=== PATIENT | female | born 1995 | race American Indian/Alaskan Native ===

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

== ENCOUNTER 2017-02-11 11:44 | Outpatient (CLI) | payer MEDICAID ==
[2017-02-11 12:58] VITALS: BP 122/72
== END 2017-02-11 13:34 | disposition home or self-care (01) ==
LOC: TRG 11:44
PROVIDERS: ATTEND Obstetrics & Gynecology
DX: O48.0 Post-term pregnancy (principal); Z3A.40 40 weeks gestation of pregnancy
CPT/HCPCS: 59025

== ENCOUNTER 2019-02-16 11:40 | Emergency (ER) | payer SELFPAY ==
[2019-02-16 11:54] VITALS: BP 105/71
--- NOTE | 2019-02-16 11:54 | Emergency Department Report ---
Blank Doc - Documentation Documentation: This is a 24-year-old female that presents with right eye irritation with blurry vision. Stated has some "cloudiness" to the eye. Is taking Polytrim for this with no relief. Stated is getting wore. This initial assessment/diagnostic orders/clinical plan/treatment(s) is/are subject to change based on patient's health status, clinical progression and re- assessment by fellow clinical providers in the ED. Further treatment and workup at subsequent clinical providers discretion. Patient/guardians urged not to elope from the ED as their condition may be serious if not clinically assessed and managed. Initial orders include: 1- Patient sent to [facility] for further evaluation and treatment 2- visual acuity
--- NOTE | 2019-02-16 14:09 | Emergency Department Report ---
[place] [facility] Chief Complaint: Eye Problems Stated Complaint: PINK EYE/BLURRED VISION (R) EYE Time Seen by Provider: 02/16/19 11:51 Duration: 5 Days Side: Bilateral Severity: moderate Symptoms: Yes Eye Itching, Yes Eye Redness, Yes Eye Pain, Yes Blurred Vision (right), No Mucous Drainage, No Purulent Drainage, No Preceding URI, No H/O Allergic Rhinitis, No Contact Lens Use, No Trauma, No Fever, No Headache Other History: This is a 24-year-old female presents complaining of right greater than left eye redness and irritation signs. Patient states that her and son were evaluated last week for pinkeye. Patient states that after taking antibiotics there symptoms resolve. Patient states that her symptoms started after that patient states then started taking her 's prescription eye drops no relief. ED Review of Systems ROS: Stated complaint: PINK EYE/BLURRED VISION (R) EYE Other details as noted in HPI Comment: All other systems reviewed and negative ED Past Medical Hx - Past Medical History Previous Medical History?: No Hx Hypertension: Yes Hx Congestive Heart Failure: No Hx Diabetes: No Hx Deep Vein Thrombosis: No Hx Renal Disease: No Hx Sickle Cell Disease: No Hx Seizures: No Hx Asthma: No Hx COPD: No Hx HIV: No - Surgical History Past Surgical History?: No - Social History Smoking Status: Never Smoker Substance Use Type: None - Medications Home Medications: Home Medications Medication Instructions Recorded Confirmed Last Taken Type Vitamins 1 tab PO DAILY 02/11/17 02/17/17 02/13/17 23:00 History Ferrous Sulfate [Feosol 325 MG tab] 325 mg PO BID #60 tablet 02/17/17 Unknown Rx HYDROcodone/APAP 5-325 [[place] 1 each PO Q6HR PRN #30 tablet 02/17/17 Unknown Rx 5/325] Ibuprofen [Motrin] 800 mg PO Q8HR PRN #30 tablet 02/17/17 Unknown Rx Vit Calc,Iron,Folic 1 each PO DAILY #30 tablet 02/17/17 Unknown Rx [ Vitamins] Metoclopramide [Reglan] 10 mg PO ACHS PRN #40 tablet 07/30/18 Unknown Rx diphenhydrAMINE [Benadryl CAP] 25 mg PO Q8HR PRN #30 capsule 07/30/18 Unknown Rx Clindamycin [Clindamycin CAP] 300 mg PO Q8H #21 cap 02/16/19 Unknown Rx levoFLOXacin [levofloxacin OPTH] 1 - 2 drop OP Q4HWA #5 ml 02/16/19 Unknown Rx [place] [facility] Exam - Exam General: Vital signs noted. No distress. Alert and acting appropriately. Eye Exam: Left Injection (right greater than left), Neither Chemosis, Neither Abnormal Pupil, Neither EOMI, Neither Eye Foreign Body, Neither Lid Foreign Body, Neither Mucous Discharge, Neither Purulent Discharge, Neither Fluorescein Uptake HEENT: No Nasal Congestion, No Pharyngeal Erythema Remainder of HEENT: Normal Lungs: Yes Clear Lung Sounds, Yes Good Air Exchange, No Wheezes, No Stridor, No Cough, No Nasal Flaring, No Retractions, No Use of Accessory Muscles ED Course Vital Signs 02/16/19 11:52 Temperature 98.7 F Pulse Rate 68 Respiratory 16 Rate Blood Pressure 105/71 O2 Sat by Pulse 98 Oximetry ED Medical Decision Making - Medical Decision Making 33-year-old male presents with right and left eye conjunctivitis ED course: Discussed the patient will be going home on antibiotic eyedrops to apply 4-5 times a day. Vision acuity test completed. Noted in chart I discussed the patient we'll give her chemical applicator referral if needed follow-up if symptoms persist. I discussed the patient is new or worsening symptoms to return to ED immediately Patient's vital signs are stable she's in no distress. Patient is vision is intact, visual acuity test performed. Discussed the patient to follow up with her primary care physician in 3-5 days. Critical care attestation.: If time is entered above; I have spent that time in minutes in the direct care of this critically ill patient, excluding procedure time. ED Disposition Clinical Impression: Conjunctivitis Disposition: DC-01 TO HOME OR SELFCARE Is pt being admited?: No Does the pt Need Aspirin: No Condition: Stable Instructions: Conjunctivitis (ED) Additional Instructions: Make sure to follow up with the primary care physician as discussed. Take all your medications as you've been prescribed. If you have any worsening symptoms or develop new symptoms please return to ED immediately. Prescriptions: Clindamycin [Clindamycin CAP] 300 mg PO Q8H #21 cap levoFLOXacin [levofloxacin OPTH] 1 - 2 drop OP Q4HWA #5 ml Referrals: NAUN LOYOLA MD [Primary Care Provider] - 3-5 Days Forms: Work/School Release Form(ED) Time of Disposition: 14:13
== END 2019-02-16 14:36 | disposition home or self-care (01) ==
LOC: ED 11:40
DX: H10.9 Unspecified conjunctivitis (principal); I10 Essential (primary) hypertension

== ENCOUNTER 2019-09-26 07:03 | Emergency (ER) | payer SELFPAY ==
[2019-09-26 07:11] VITALS: BP 124/56
[2019-09-26] MEDS ORDERED: SODIUM CHLORIDE 0.9% 1000 ML 1,000 ML IV ONE (08:51)
[2019-09-26] MEDS ORDERED: METOCLOPRAMIDE 10 MG/2 ML INJ IV ONE (08:51)
[2019-09-26] MEDS ORDERED: diphenhydrAMINE 50 MG/ML VIAL IV STA (08:51)
--- NOTE | 2019-09-26 08:56 | Emergency Department Report ---
ED Abdominal Pain HPI - General Chief Complaint: Nausea/Vomiting/Diarrhea Stated Complaint: nausea Time Seen by Provider: 09/26/19 08:50 Source: patient, family Mode of arrival: Ambulatory Limitations: No Limitations - History of Present Illness Initial Comments: 24-year-old asthmatic female presents emergency department complaining of a reemergence of nausea and vomiting was been present for the last 3 days. States she's had over 10 episodes per day and not feeling weak and faint of unknown etiology. She reports no hematuria, no hematemesis nor hematochezia. Reports no fever or sweats but does have chills and general aches. The symptoms come on suddenly and associated with left-sided abdomen abdominal pain with a decreased appetite MD Complaint: abdominal pain -: Sudden, days(s) Radiation: LUQ, LLQ Migration to: LLQ, epigastric Severity: moderate Quality: stabbing, aching Consistency: constant Improves With: nothing Worsens With: vomiting Associated Symptoms: nausea, vomiting. denies: fever, chills, constipation, dysuria, hematemesis, melena, hematuria, anorexia, syncope - Related Data Home Medications Medication Instructions Recorded Confirmed Last Taken Vitamins 1 tab PO DAILY 02/11/17 02/17/17 02/13/17 23:00 Previous Rx's Medication Instructions Recorded Last Taken Type Ferrous Sulfate [Feosol 325 MG tab] 325 mg PO BID #60 tablet 02/17/17 Unknown Rx HYDROcodone/APAP 5-325 [Home 1 each PO Q6HR PRN #30 tablet 02/17/17 Unknown Rx 5/325] Ibuprofen [Motrin] 800 mg PO Q8HR PRN #30 tablet 02/17/17 Unknown Rx Vit Calc,Iron,Folic 1 each PO DAILY #30 tablet 02/17/17 Unknown Rx [ Vitamins] Metoclopramide [Reglan] 10 mg PO ACHS PRN #40 tablet 07/30/18 Unknown Rx diphenhydrAMINE [Benadryl CAP] 25 mg PO Q8HR PRN #30 capsule 07/30/18 Unknown Rx Clindamycin [Clindamycin CAP] 300 mg PO Q8H #21 cap 02/16/19 Unknown Rx levoFLOXacin [levofloxacin OPTH] 1 - 2 drop OP Q4HWA #5 ml 02/16/19 Unknown Rx Hyoscyamine Subl [Levsin Sl 0.125 0.125 mg SL Q6HR PRN #20 tab 09/26/19 Unknown Rx TAB] Ondansetron [Zofran ODT TAB] 8 mg PO Q12HR #14 tab.rapdis 09/26/19 Unknown Rx Allergies Allergy/AdvReac Type Severity Reaction Status Date / Time No Known Allergies Allergy Verified 07/26/14 04:09 ED Review of Systems ROS: Stated complaint: nausea Other details as noted in HPI Comment: All other systems reviewed and negative ED Past Medical Hx - Past Medical History Previous Medical History?: Yes Hx Hypertension: No Hx Congestive Heart Failure: No Hx Diabetes: No Hx Deep Vein Thrombosis: No Hx Renal Disease: No Hx Sickle Cell Disease: No Hx Seizures: No Hx Asthma: No Hx COPD: No Hx HIV: No Additional medical history: Vaginal delivery x 1 - Surgical History Past Surgical History?: Yes Additional Surgical History: C- section x 1 - Social History Smoking Status: Never Smoker - Medications Home Medications: Home Medications Medication Instructions Recorded Confirmed Last Taken Type Vitamins 1 tab PO DAILY 02/11/17 02/17/17 02/13/17 23:00 History Ferrous Sulfate [Feosol 325 MG tab] 325 mg PO BID #60 tablet 02/17/17 Unknown Rx HYDROcodone/APAP 5-325 [Home 1 each PO Q6HR PRN #30 tablet 02/17/17 Unknown Rx 5/325] Ibuprofen [Motrin] 800 mg PO Q8HR PRN #30 tablet 02/17/17 Unknown Rx Vit Calc,Iron,Folic 1 each PO DAILY #30 tablet 02/17/17 Unknown Rx [ Vitamins] Metoclopramide [Reglan] 10 mg PO ACHS PRN #40 tablet 07/30/18 Unknown Rx diphenhydrAMINE [Benadryl CAP] 25 mg PO Q8HR PRN #30 capsule 07/30/18 Unknown Rx Clindamycin [Clindamycin CAP] 300 mg PO Q8H #21 cap 02/16/19 Unknown Rx levoFLOXacin [levofloxacin OPTH] 1 - 2 drop OP Q4HWA #5 ml 02/16/19 Unknown Rx Hyoscyamine Subl [Levsin Sl 0.125 0.125 mg SL Q6HR PRN #20 tab 09/26/19 Unknown Rx TAB] Ondansetron [Zofran ODT TAB] 8 mg PO Q12HR #14 tab.rapdis 09/26/19 Unknown Rx ED Physical Exam - General Limitations: No Limitations General appearance: alert, in no apparent distress (but does appear to be uncomfortable.) - Head Head exam: Present: atraumatic, normocephalic - Eye Eye exam: Present: normal appearance, PERRL, EOMI Pupils: Present: normal accommodation - ENT ENT exam: Present: normal exam, normal orophraynx, mucous membranes moist, TM's normal bilaterally - Neck Neck exam: Present: normal inspection, full ROM - Respiratory Respiratory exam: Present: normal lung sounds bilaterally. Absent: respiratory distress, wheezes, rales, accessory muscle use, decreased breath sounds - Cardiovascular Cardiovascular Exam: Present: regular rate, normal rhythm. Absent: bradycardia, tachycardia, irregular rhythm, systolic murmur, diastolic murmur, rubs, gallop - GI/Abdominal GI/Abdominal exam: Present: soft, normal bowel sounds. Absent: tenderness, guarding, hypoactive bowel sounds, organomegaly - Extremities Exam Extremities exam: Present: normal inspection - Back Exam Back exam: Present: normal inspection, full ROM. Absent: CVA tenderness (R), CVA tenderness (L), muscle spasm - Neurological Exam Neurological exam: Present: alert, oriented X3, CN II-XII intact - Psychiatric Psychiatric exam: Present: normal affect, normal mood - Skin Skin exam: Present: warm, dry, intact, normal color. Absent: rash ED Course Vital Signs 09/26/19 07:06 Temperature 97.4 F L Pulse Rate 62 Respiratory 18 Rate Blood Pressure 124/56 O2 Sat by Pulse 100 Oximetry ED Medical Decision Making - Lab Data Result diagrams: 09/26/19 09:01 09/26/19 09:01 - Radiology Data Radiology results: report reviewed (CT scan shows impression negative for obstruction or localized inflammation) - Medical Decision Making This patient presents with abdominal pain of unclear etiology. A CT scan was performed to evaluate for potential causes of the abdominal pain, however, neither the clinical exam nor the CT has identified an emergent etiology for the abdominal pain. Specifically, given the benign exam, the laboratory studies, and unremarkable CT, I have a very low suspicion for appendicitis, ischemic bowel, bowel perforation, or any other life threatening disease. I have discussed with the patient the level of uncertainty with undifferentiated abdominal pain and clearly explained the need to follow-up as noted on the discharge instructions, or return to the Emergency Department immediately if the pain worsens, develops fever, persistent and uncontrollable vomiting, or for any new symptoms or concerns. She states her symptoms significant only improved is able to tolerate oral no complications. Alert and oriented 3 sounds sound judgment. Critical care attestation.: If time is entered above; I have spent that time in minutes in the direct care of this critically ill patient, excluding procedure time. ED Disposition Clinical Impression: Abdominal pain Disposition: DC- TO HOME OR SELFCARE Is pt being admited?: No Does the pt Need Aspirin: No Condition: Stable Instructions: Abdominal Pain (ED), Acute Abdominal Pain (ED), Acute Nausea and Vomiting (ED) Referrals: PRIMARY CAREMD [Primary Care Provider] - 3-5 Days [facility] [Provider Group] - 3-5 Days TAMRA SNYDER MD [Staff Physician] - 3-5 Days
[2019-09-26 09:12] LABS: Bilirubin,Urine NEG (Negative); Blood,Urine NEG (Negative); Color,Urine Yellow (Yellow); Mucus,Urine 1+ /HPF
[2019-09-26 09:29] LABS: HCG Qualitative,Urine Negative (Negative)
[2019-09-26 09:34] LABS: Hematocrit 36.4 % (30.3-42.9); Hemoglobin 11.8 gm/dl (10.1-14.3); Mean Corpuscular HGB Conc 32 % (30-34); Mean Corpuscular Volume 74 fl (79-97); Platelet Count 405 K/mm3 (140-440); Red Blood Count 4.92 M/mm3 (3.65-5.03); Red Cell Distribution Width 15.3 % (13.2-15.2)
[2019-09-26 09:46] LABS: Alanine Aminotransferase 22 units/L (7-56); Albumin 4.8 g/dL (3.9-5); BUN/Creatinine Ratio 15; Blood Urea Nitrogen 9 mg/dL (7-17); Hemolysis Index 45
[2019-09-26 10:28] LABS: Basophils % (Manual) 0 % (0.0-1.8); Eosinophils % (Manual) 0 % (0.0-4.3); Total Cells Counted 100
[2019-09-26 10:29] LABS: Hypochromasia Few; Large Platelets Few; Platelet Estimate Consistent w Auto; Target Cells Few
--- NOTE | 2019-09-26 10:51 | Cat Scan Report ---
CT abdomen pelvis w con INDICATION: Nausea, Vomiting and Diarrhea. TECHNIQUE: All CT scans at this location are performed using the following dose modulation technique: Automated exposure control. Contrasted images of the abdomen were obtained in the more delayed phase only due t o patient movement. CONTRAST: Omnipaque 300, 100 cc IV injection. COMPARISON: None. CT ABDOMEN: The parenchymal organs are unremarkable in appearance. Negative for abdominal mass, fluid or inflammation. The bowel is not dilated or thickened. CT PELVIS: Negative for mass, fluid or inflammation. The appendix is not identified. IMPRESSION: Negative for obstruction or localized inflammation. Signer Name: Garth Jean MD Signed: 09/26/2019 10:47 AM Workstation Name: [id number]
[2019-09-26] MEDS ORDERED: ONDANSETRON 4 MG/2 ML INJ IV STA (12:05)
== END 2019-09-26 15:05 | disposition home or self-care (01) ==
LOC: ED 07:03
DX: R10.9 Unspecified abdominal pain (principal); R11.2 Nausea with vomiting, unspecified; Z79.899 Other long term (current) drug therapy
CPT/HCPCS: 36415; 74177; 80053; 81001; 81025; 83690; 85007; 85025; 87086; 96361; 96374; 96375; 99284; J1200; J2405; J2765; J7030; Q9967

== ENCOUNTER 2020-12-13 13:10 | Outpatient (CLI) | payer SELFPAY ==
[2020-12-13 14:38] LABS: Basophils # (Auto) 0.1 K/mm3 (0.0-0.1); Basophils % (Auto) 0.7 % (0.0-1.8); Eosinophils % (Auto) 0.4 % (0.0-4.3); Hematocrit 34.8 % (30.3-42.9); Hemoglobin 11.2 gm/dl (10.1-14.3); Mean Corpuscular HGB Conc 32 % (30-34); Mean Corpuscular Volume 74 fl (79-97); Monocytes # (Auto) 0.5 K/mm3 (0.0-0.8); Monocytes % (Auto) 6.7 % (0.0-7.3); Platelet Count 416 K/mm3 (140-440); Red Blood Count 4.69 M/mm3 (3.65-5.03); Red Cell Distribution Width 15.2 % (13.2-15.2)
[2020-12-13 14:47] LABS: Alanine Aminotransferase 17 units/L (7-56); Albumin 4.1 g/dL (3.9-5); Blood Urea Nitrogen 4 mg/dL (7-17); Calcium 8.8 mg/dL (8.4-10.2); Hemolysis Index 2; INR 0.93 (0.87-1.13)
[2020-12-13 14:48] LABS: Partial Thromboplastin Time 27.4 Sec. (24.2-36.6)
[2020-12-13 14:49] LABS: BUN/Creatinine Ratio 7
[2020-12-13 15:01] LABS: Free T4 (Free Thyroxine) 1.29 ng/dL (0.76-1.46)
[2020-12-13 15:06] LABS: HCG,Quantitative < 2 mIU/mL (0-4)
== END 2020-12-13 13:11 | disposition home or self-care (01) ==
LOC: LAB 13:10
DX: Z01.810 Encounter for preprocedural cardiovascular examination (principal); Z01.818 Encounter for other preprocedural examination; Z01.811 Encounter for preprocedural respiratory examination
CPT/HCPCS: 36415; 80053; 83036; 84439; 84443; 84702; 85025; 85610; 85730; 86689